=== PATIENT | male | born 1990 | race Caucasian/White ===

== ENCOUNTER 2020-02-28 11:05 | Inpatient (IN) | payer OTHER ==
--- NOTE | 2020-02-28 11:14 | BHS.RME ---
Substance Use & Tx History - Substance Use History Heroin Substance amount: Fentanyl Frequency of use: Daily Substance route: Inhalation (ex: sniffing or snorting) Date of Last Use: 02/28/20 Nicotine Substance amount: 1 pack Frequency of use: Daily Substance route: Smoking Date of Last Use: 02/28/20 Physical/Psych/Mental Status - Behavior General Behavior: Increased activity (restlessness, agitation) Eye Contact: Normal - Cooperativeness Cooperativeness: Cooperative - Thinking Thought Processes: Tight, Logical, Goal Directed - Physical Health Problems Is patient presently having any pain?: No Does patient presently have any injuries (include location): No Does patient currently have a fever: No Is patient : No COWS - Scale Resting Pulse: 1= FL 81-100 Sweatin= Beads of Sweat on Face Restless Observation: 3= Extraneous Movement Pupil Size: 1= Pupils >than Normal Bone or Joint Aches: 2= Severe Diffuse Aches Runny Nose/ Eye Tearin= Runny Nose/Eyes GI Upset > 30mins: 3= Vomiting/Diarrhea Tremor Observation: 2= Slight Tremor Visible Yawning Observation: 1= 1-2x During Session Anxiety or Irritability: 1=Feels Anxious/Irritable Goose Flesh Skin: 3=Piloerection COWS Score: 22
[2020-02-28 11:30] VITALS: BMI 22.3
--- NOTE | 2020-02-28 11:34 | HP ---
COWS - Scale Resting Pulse: 1= DC 81-100 Sweatin= Beads of Sweat on Face Restless Observation: 3= Extraneous Movement Pupil Size: 1= Pupils >than Normal Bone or Joint Aches: 2= Severe Diffuse Aches Runny Nose/ Eye Tearin= Runny Nose/Eyes GI Upset > 30mins: 3= Vomiting/Diarrhea Tremor Observation: 2= Slight Tremor Visible Yawning Observation: 1= 1-2x During Session Anxiety or Irritability: 1=Feels Anxious/Irritable Goose Flesh Skin: 3=Piloerection COWS Score: 22 CIWA Score - Admission Criteria [facility]ASAS Guidelines: Admission for Medically Managed Detox: Requires at least one of the followin. CIWA greater than 12 2. Seizures within the past 24 hours 3. Delirium tremens within the past 24 hours 4. Hallucinations within the past 24 hours 5. Acute intervention needed for co occurring medical disorder 6. Acute intervention needed for co occurring psychiatric disorder 7. Severe withdrawal that cannot be handled at a lower level of care (continued vomiting, continued diarrhea, abnormal vital signs) requiring intravenous medication and/or fluids 8. Admitting History and Physical - Admission Chief Complaint: Mr. Moon is a 29 yo gentleman who presents to [facility] requesting detox from heroin use. This is his first admission to [facility]. History of Present Illness: Mr. Moon is a 29 yo gentleman who presents to [facility] requesting detox from heroin use. This is his first admission to [facility]. PMH/PSH/ Psych/Legal: right sciatica SOC: lives with significant other Substance Use History Heroin Substance amount: Fentanyl Frequency of use: Daily Substance route: Inhalation (ex: sniffing or snorting) Date of Last Use: 02/28/20 No hx of OD. No Narcan at home First use age 15: heroin. Began Fentanyl one month ago Nicotine Substance amount: 1 pack Frequency of use: Daily Substance route: Smoking Date of Last Use: 02/28/20 Began age 15 y Patient Name: Marcus Moon Date: 1990 Address: [address] [place] [address] Sex: Male Rx Written Rx Dispensed Drug Quantity Days Supply Prescriber Name Payment Method Dispenser 05/03/2019 05/05/2019 buprenorphine-naloxone 8-2 mg sl film 18 6 Pete Ricci MD [facility] History Source: Patient Limitations to Obtaining History: No Limitations Admission ROS S - HPI Allergies/Adverse Reactions: Allergies Allergy/AdvReac Type Severity Reaction Status Date / Time No Known Allergies Allergy Verified 02/28/20 12:25 Exam Limitations: No Limitations - Ebola screening Have you traveled outside of the country in the last 21 days: No Have you been sick,other than usual withdrawal symptoms: No Do you have a fever: No - Review of Systems Constitutional: No Symptoms Reported EENT: reports: No Symptoms Reported Respiratory: reports: No Symptoms reported Cardiac: reports: No Symptoms Reported GI: reports: Nausea, Vomiting : reports: No Symptoms Reported Musculoskeletal: reports: Back Pain Integumentary: reports: No Symptoms Reported Neuro: reports: Other (right sciatica, takes Motrin) Endocrine: reports: No Symptoms Reported Hematology: reports: No Symptoms Reported Patient History - Smoking Cessation Smoking history: Current every day smoker Have you smoked in the past 12 months: Yes Aproximately how many cigarettes per day: 20 Hx Chewing Tobacco Use: No Initiated information on smoking cessation: Yes 'Breaking Loose' booklet given: 02/28/20 Admission Physical Exam [facility] - Physical General Appearance: Yes: Mild Distress, Anxious HEENTM: Yes: EOMI, Hearing grossly Normal, Normocephalic, Normal Voice Respiratory: Yes: Lungs Clear, Normal Breath Sounds Neck: Yes: Within Normal Limits, Supple Breast: Yes: Breast Exam Deferred Cardiology: Yes: Regular Rate, S1, S2, Bradycardia Abdominal: Yes: Non Tender, Flat, Soft, Decreased BS Back: Yes: Normal Inspection Musculoskeletal: Yes: Gait Steady Extremities: Yes: Normal Inspection, Non-Tender Neurological: Yes: Alert, Normal Response Integumentary: Yes: Normal Color, Dry, Warm - Diagnostic (1) Opioid withdrawal Current Visit: Yes Status: Acute (2) Nicotine dependence Current Visit: Yes Status: Acute Qualifiers: Nicotine product type: cigarettes Substance use status: uncomplicated Qualified Code(s): F17.210 - Nicotine dependence, cigarettes, uncomplicated (3) Sciatica Current Visit: Yes Status: Chronic Qualifiers: Laterality: right Qualified Code(s): M54.31 - Sciatica, right side Cleared for Admission [facility] - Detox or Rehab [facility] Level of Care: Medically Managed Detox Regimen/Protocol: Methadone Urine Drug Screen - Results Urine drug screen results: THC-Marijuana, TORSTEN-Cocaine, FEN-Fentanyl Inpatient Rehab Admission - Rehab Decision to Admit Inpatient rehab admission?: No
[2020-02-28] MEDS ORDERED: ONDANSETRON *ODT* 4 MG TABLET SL ONE ×2 (12:32→13:00)
[2020-02-28] MEDS ORDERED: ONDANSETRON *ODT* 4 MG TABLET SL PRN (12:41)
[2020-02-28] MEDS ORDERED: MAGNESIUM HYDROX 2400MG/30ML ORAL SUSPENSION 30 ML CUP PO PRN (12:41)
[2020-02-28] MEDS ORDERED: MAGNESIUM CITRATE 300 ML BOTTLE PO PRN (12:41)
[2020-02-28] MEDS ORDERED: BISMUTH SUBSALICYLATE 524 MG/30 ML UD PO PRN (12:41)
[2020-02-28] MEDS ORDERED: MENTHOL/PHENOL 1 EACH UD MM PRN (12:41)
[2020-02-28] MEDS ORDERED: IBUPROFEN 400 MG TABLET (FP) PO PRN (12:41)
[2020-02-28] MEDS ORDERED: cloNIDine HCL 0.1 MG TABLET PO PRN (12:41)
[2020-02-28] MEDS ORDERED: ACETAMINOPHEN 325 MG TABLET (FP) PO PRN ×2 (12:41)
[2020-02-28] MEDS ORDERED: MAG HYDROX/AL HYDROX/SIMETH 30 ML UNIT-DOSE CUP PO PRN (12:41)
[2020-02-28] MEDS ORDERED: NICOTINE POLACRILEX 2 MG GUM BUC PRN (12:41)
[2020-02-28] MEDS ORDERED: METHADONE HCL 10 MG TABLET (FOR DETOX USE ONLY) PO ONE (13:00)
[2020-02-28] MEDS: hydrOXYzine PAMOATE 25 MG CAPSULE (FP) PO SCH ×3 (13:36→21:27)
[2020-02-28] MEDS: NICOTINE 21 MG/24 HOURS TOPICAL PATCH TD SCH (13:38)
[2020-02-28] MEDS: PRENATAL VITAMINS W/ FOLIC ACID TABLET (FP) PO SCH (13:39)
--- NOTE | 2020-02-28 14:10 | EKG ---
Test Reason : Blood Pressure : / mmHG Vent. Rate : 054 BPM Atrial Rate : 054 BPM P-R Int : 142 ms QRS Dur : 098 ms QT Int : 464 ms P-R-T Axes : 054 087 067 degrees QTc Int : 440 ms SINUS BRADYCARDIA POSSIBLE LEFT ATRIAL ENLARGEMENT BORDERLINE ECG NO PREVIOUS ECGS AVAILABLE Confirmed by Mihir Diaz MD ([id number]) on 02/28/2020 2:09:44 PM Referred By: Confirmed By:Mihir Diaz MD
[2020-02-28 17:06] LABS: HEMOGLOBIN 13.8 GM/dL (11.7-16.9); MCH 31.3 pg (25.7-33.7); MCHC 33.5 g/dl (32.0-35.9); MEAN CELL VOLUME 93.3 fl (80-96); MEAN PLT VOLUME 10.7 fl (7.5-11.1); PLATELET COUNT 162 K/MM3 (134-434); RDW 13.6 % (11.9-15.9); WHITE BLOOD COUNT 9.9 K/mm3 (4.0-10.0)
[2020-02-28 17:25] LABS: ALBUMIN 4.4 g/dl (3.4-5.0); BLOOD UREA NITROGEN 10.9 mg/dL (7-18); CALCIUM 9.3 mg/dL (8.5-10.1)
[2020-02-28] MEDS: METHOCARBAMOL 500 MG TABLET PO PRN (21:27)
[2020-02-28] MEDS ORDERED: MELATONIN 5 MG TABLETS PO SCH (22:00)
[2020-02-28] MEDS ORDERED: THIAMINE HCL 100 MG TABLET (FP) PO SCH (22:00)
[2020-02-29] MEDS: hydrOXYzine PAMOATE 25 MG CAPSULE (FP) PO SCH ×3 (06:08→14:41)
[2020-02-29] MEDS: METHOCARBAMOL 500 MG TABLET PO PRN (06:08)
[2020-02-29] MEDS ORDERED: METHADONE HCL 5 MG TABLET (FOR DETOX USE ONLY) ONE (09:04)
[2020-02-29] MEDS ORDERED: METHADONE HCL 10 MG TABLET (FOR DETOX USE ONLY) ONE (09:04)
[2020-02-29 09:06] VITALS: TEMP 97.3
[2020-02-29] MEDS ORDERED: METHADONE (DETOX) 20 MG, METHADONE (DETOX) 5 MG PO ONE (10:00)
--- NOTE | 2020-02-29 10:42 | PN ---
BHS COWS - Scale Resting Pulse: 0= NM 80 or Below Sweatin= Chills/Flushing Restless Observation: 0= Sits Still Pupil Size: 1= Pupils >than Normal Bone or Joint Aches: 2= Severe Diffuse Aches Runny Nose/ Eye Tearin= Runny Nose/Eyes GI Upset > 30mins: 2= Nausea/Diarrhea Tremor Observation of Outstretched Hands: 2= Slight Tremor Visible Yawning Observation: 2= >3x During Session Anxiety or Irritability: 2=Irritable/Anxious Goose Flesh Skin: 3=Piloerection COWS Score: 17 BHS Progress Note (SOAP) Subjective: 29 years old male admitted on 02/28/20 for opiate withdrawal sx management treating with methadone detox regiment feeling tired resting in bed prefers to sleep longer in bed limited conversation with staff ensure supplement Objective: 02/29/20 10:44 Vital Signs - 24 hr 02/28/20 02/28/20 02/28/20 11:29 12:26 12:58 Temperature 97.4 F L 97.4 F L Pulse Rate 75 75 Respiratory 20 20 Rate Blood Pressure 154/108 H 154/108 H O2 Sat by Pulse 98 Oximetry (%) 02/28/20 02/28/20 02/28/20 13:40 13:41 16:55 Temperature 96.8 F L 97.5 F L Pulse Rate 68 66 Respiratory 18 20 Rate Blood Pressure 148/102 H 125/79 O2 Sat by Pulse 98 Oximetry (%) 02/28/20 02/29/20 02/29/20 20:45 00:28 03:25 Temperature 97.7 F Pulse Rate 92 H Respiratory 18 18 16 Rate Blood Pressure 115/70 O2 Sat by Pulse 99 Oximetry (%) 02/29/20 02/29/20 06:33 08:48 Temperature 97.5 F L 97.3 F L Pulse Rate 56 L 62 Respiratory 18 18 Rate Blood Pressure 130/77 104/56 L O2 Sat by Pulse 100 Oximetry (%) Laboratory Tests 02/28/20 02/28/20 02/28/20 12:30 12:30 12:30 WBC 9.9 RBC 4.40 Hgb 13.8 Hct 41.0 MCV 93.3 MCH 31.3 MCHC 33.5 RDW 13.6 Plt Count 162 MPV 10.7 Sodium 138 Potassium 4.0 Chloride 100 Carbon Dioxide 33 H Anion Gap 5 L BUN 10.9 Creatinine 1.0 Est GFR (CKD-EPI)AfAm 119.02 Est GFR (CKD-EPI)NonAf 102.69 Random Glucose 96 Calcium 9.3 Total Bilirubin 1.0 AST 31 ALT 43 Alkaline Phosphatase 71 Total Protein 7.0 Albumin 4.4 Syphilis Serology Non-reactive HIV Ag/Ab Combo Qual 02/28/20 12:30 WBC RBC Hgb Hct MCV MCH MCHC RDW Plt Count MPV Sodium Potassium Chloride Carbon Dioxide Anion Gap BUN Creatinine Est GFR (CKD-EPI)AfAm Est GFR (CKD-EPI)NonAf Random Glucose Calcium Total Bilirubin AST ALT Alkaline Phosphatase Total Protein Albumin Syphilis Serology HIV Ag/Ab Combo Qual Negative Assessment: 02/29/20 10:44 opiate withdrawal Plan: methadone regiment
[2020-02-29] MEDS: NICOTINE 21 MG/24 HOURS TOPICAL PATCH TD SCH (10:53)
[2020-02-29] MEDS: PRENATAL VITAMINS W/ FOLIC ACID TABLET (FP) PO SCH (10:53)
[2020-02-29 13:21] VITALS: BP 117/64; PULSE 69
--- NOTE | 2020-02-29 14:43 | DS ---
[facility] Detox Discharge Summary Admission Date: 02/28/20 Discharge Date: 02/29/20 - History Present History: Opioid Dependence Additional Comments: 29 years old male admitted on 02/28/20 for opiate withdrawal sx management treated with methadone detox regiment Mr Young presents inappropriate touching and kissing with the female peer who were found in Mr Young's room treatment team met with the patient to complete opiate detox that Mr Young may be transferred to continue opiate detox Mr oYung refuses to be from the female peer Mr Young insists to leave the detox with the female peer Mr Young is alert oriented x 3 speech clearly coherently ambulating steady gaits respiratory clear lung sounds bilaterally on auscultation abdomen soft flat no rebound tenderness extremities full range of motion Pertinent Past History: time for discharge 44 minutes strong recommend mr young to pickle pumper narcan from pharmacy and consider medication assisted treatment program encourage the patient to attend community support groups and meetings toward sobriety high risk detox termination at this time due to navigate self toward female peer unable to focus own addiction recovery against medical advice is appropriated - Physical Exam Results Vital Signs: Vital Signs Temperature 97.3 F L 02/29/20 12:43 Pulse Rate 69 02/29/20 12:43 Respiratory Rate 18 02/29/20 12:43 Blood Pressure 117/64 02/29/20 12:43 O2 Sat by Pulse Oximetry (%) 99 02/29/20 12:43 Pertinent Admission Physical Exam Findings: opiate withdrawal Vital Signs - 24 hr 02/28/20 02/28/20 02/29/20 16:55 20:45 00:28 Temperature 97.5 F L 97.7 F Pulse Rate 66 92 H Respiratory 20 18 18 Rate Blood Pressure 125/79 115/70 O2 Sat by Pulse 99 Oximetry (%) 02/29/20 02/29/20 02/29/20 03:25 06:33 08:48 Temperature 97.5 F L 97.3 F L Pulse Rate 56 L 62 Respiratory 16 18 18 Rate Blood Pressure 130/77 104/56 L O2 Sat by Pulse 100 Oximetry (%) 02/29/20 12:43 Temperature 97.3 F L Pulse Rate 69 Respiratory 18 Rate Blood Pressure 117/64 O2 Sat by Pulse 99 Oximetry (%) Laboratory Tests 02/28/20 02/28/20 02/28/20 12:30 12:30 12:30 WBC 9.9 RBC 4.40 Hgb 13.8 Hct 41.0 MCV 93.3 MCH 31.3 MCHC 33.5 RDW 13.6 Plt Count 162 MPV 10.7 Sodium 138 Potassium 4.0 Chloride 100 Carbon Dioxide 33 H Anion Gap 5 L BUN 10.9 Creatinine 1.0 Est GFR (CKD-EPI)AfAm 119.02 Est GFR (CKD-EPI)NonAf 102.69 Random Glucose 96 Calcium 9.3 Total Bilirubin 1.0 AST 31 ALT 43 Alkaline Phosphatase 71 Total Protein 7.0 Albumin 4.4 Syphilis Serology Non-reactive HIV Ag/Ab Combo Qual 02/28/20 12:30 WBC RBC Hgb Hct MCV MCH MCHC RDW Plt Count MPV Sodium Potassium Chloride Carbon Dioxide Anion Gap BUN Creatinine Est GFR (CKD-EPI)AfAm Est GFR (CKD-EPI)NonAf Random Glucose Calcium Total Bilirubin AST ALT Alkaline Phosphatase Total Protein Albumin Syphilis Serology HIV Ag/Ab Combo Qual Negative lab noted - Treatment Hospital Course: Detox Protocol Followed, Responded well Patient has Accepted a Rehab Referral to: community support approach - Medication Discharge Medications: Ambulatory Orders Naloxone HCl [Narcan] 4 mg NS ASDIR PRN #1 spray 02/29/20 - Diagnosis (1) Nicotine dependence Current Visit: Yes Status: Acute Qualifiers: Nicotine product type: cigarettes Substance use status: in withdrawal Qualified Code(s): F17.213 - Nicotine dependence, cigarettes, with withdrawal (2) Opioid withdrawal Current Visit: Yes Status: Acute (3) Positive PPD, treated Current Visit: Yes Status: Resolved - AMA Did Patient Leave Against Medical Advice: Yes COWS (PN) - Opiate Withdrawal Resting Pulse: 0= [place] 80 or Below Sweatin= Chills/Flushing Restless Observation: 0= Sits Still Pupil Size: 1= Pupils >than Normal Bone or Joint Aches: 2= Severe Diffuse Aches Runny Nose/ Eye Tearin= Runny Nose/Eyes GI Upset > 30mins: 2= Nausea/Diarrhea Tremor Observation of Outstretched Hands: 2= Slight Tremor Visible Yawning Observation: 0= None Anxiety or Irritability: 2=Irritable/Anxious Goose Flesh Skin: 3=Piloerection COWS Score: 15
[2020-03-01] MEDS ORDERED: METHADONE HCL 10 MG TABLET (FOR DETOX USE ONLY) PO ONE (10:00)
[2020-03-02] MEDS ORDERED: METHADONE (DETOX) 10 MG, METHADONE (DETOX) 5 MG PO ONE (10:00)
[2020-03-03] MEDS ORDERED: METHADONE HCL 10 MG TABLET (FOR DETOX USE ONLY) PO ONE (10:00)
[2020-03-04] MEDS ORDERED: METHADONE HCL 5 MG TABLET (FOR DETOX USE ONLY) PO ONE (06:00)
== END 2020-02-29 14:49 | disposition left against medical advice (07) | DRG 770 ==
LOC: YASAS 11:05 → Y3N 12:42
PROVIDERS: ADMIT Allergy & Immunology; ATTEND Allergy & Immunology
PROC: HZ2ZZZZ Detoxification Services for Substance Abuse Treatment (ICD-10-PCS; principal; 2020-02-28)
DX: F11.23 Opioid dependence with withdrawal (principal); F17.210 Nicotine dependence, cigarettes, uncomplicated; M54.31 Sciatica, right side; R76.11 Nonspecific reaction to tuberculin skin test without active tuberculosis
CPT/HCPCS: 36415; 71045-TC-FY; 80053; 85027; 86780; 87389; 93005; 93010; J0735; Q0162; U0003